=== PATIENT | male | born 1960 | race Hispanic/Latino ===

== ENCOUNTER 2024-04-30 08:51 | Inpatient (IN) | payer OTHER ==
[~2024-04-30] VITALS: Ht 172.7 cm; Wt 101.2 kg
[2024-04-30] VITALS (7 sets, daily range): BP systolic 149–167; BP diastolic 94–111; PULSE 88–101; RESP 16–21; TEMP 97.6–98.6; O2SAT 97–100
[~2024-04-30 08:51] MED LIST: AMLODIPINE BESY10 MG PO; ASPIR 8181 MG PO; ATORVASTATIN CA20 MG PO; CEPHALEXIN500 MG PO; COUMADIN5 MG PO; DOCUSATE SODIU100 MG PO; ECOTRIN325 MG PO; FUROSEMIDE40 MG PO; GABAPENTIN300 MG PO; GLUCOTROL10 MG PO; HUMULIN 70100 UNIT/2 SC; LEVEMIR100 UNIT/1 SQ; LISINOPRIL10 MG PO; METFORMIN HCL500 MG PO; METOPROLOL TART50 MG PO; NYSTATIN100000 UNI TOP; PLAVIX75 MG PO; POTASSIUM CHLO20 ME1 PO; PRAVASTATIN SOD20 MG PO; TYLENOL WITH C1 EACH PO
[2024-04-30 09:32] LABS: BASOPHILS % 0.5 % (0.0-1.0); EOSINOPHILS # (AUTO) 0.2 (0.0-0.4); EOSINOPHILS % 2.6 % (0.0-6.0); HEMATOCRIT 46.3 % (38.2-49.6); HEMOGLOBIN 15.5 g/dL (14.0-18.0); LYMPHOCYTES # (AUTO) 1.6 (1.0-3.2); LYMPHOCYTES % 20.3 % (18.0-39.1); MEAN CORPUSCULAR HEMOGLOBIN 29.1 pg (28-32); MEAN CORPUSCULAR HGB CONC 33.5 g/dL (31-35); MONOCYTES # (AUTO) 0.5 (0.2-0.8); MONOCYTES % 6.4 % (4.4-11.3); NEUTROPHILS # (AUTO) 5.3 (2.1-6.9); NEUTROPHILS % 69.9 % (38.7-80.0); PLATELET COUNT 181 x10e3/uL (140-360); RED BLOOD COUNT 5.32 x10e6/uL (4.3-5.7); RED CELL DISTRIBUTION WIDTH 12.8 % (11.7-14.4); WHITE BLOOD COUNT 7.62 x10e3/uL (4.8-10.8)
[2024-04-30] MEDS: METOPROLOL TARTRATE 25 MG TAB PO ONE (09:32)
[2024-04-30] MEDS: NITROGLYCERIN 2% OINT 1 GM PKT TOP ONE (09:32)
[2024-04-30] MEDS: ASPIRIN 81 MG CHEW TAB PO ONE (09:33)
[2024-04-30 09:50] LABS: INR 1.04; PROTHROMBIN TIME 14.2 seconds (11.9-14.5)
[2024-04-30 09:51] LABS: ALBUMIN 3.9 g/dL (3.5-5.0); ALBUMIN/GLOBULIN RATIO 1.2 (0.8-2.0); ANION GAP 15.1 mmol/L (8-16); BILIRUBIN,TOTAL 0.9 mg/dL (0.2-1.2); CALCIUM 9.1 mg/dL (8.4-10.2); CREATININE, SERUM 1.2 mg/dL (0.72-1.25); MAGNESIUM 2.1 MG/DL (1.3-2.1); PARTIAL THROMBOPLASTIN TIME 28.6 seconds (23.8-35.5); POTASSIUM 4.1 mmol/L (3.5-5.1); TOTAL PROTEIN 7.1 g/dL (6.5-8.1)
[2024-04-30 09:57] LABS: TROPONIN I 0.075 ng/mL (0-0.300)
[2024-04-30] MEDS ORDERED: IOPAMIDOL 370 MG/ML 100 ML INFUS..BTL INJ ONE (10:26)
[2024-04-30] MEDS ORDERED: ONDANSETRON HCL INJ 2MG/ML 2ML 2 MG/ML VIAL IV PRN (11:00)
[2024-04-30] MEDS ORDERED: DEXTROSE 50% SYRINGE 50 ML IV PRN (11:00)
[2024-04-30] MEDS: ENOXAPARIN SODIUM INJ 100 MG/ML SYR SC ONE (11:32)
[2024-04-30] MEDS: INSULIN LISPRO 100 UNIT/1 ML 3ML VIAL SQ SCH (12:41)
[2024-04-30] MEDS: METOPROLOL SUCCINATE 50 MG TAB XL PO SCH (15:22)
[2024-04-30] MEDS: FUROSEMIDE INJ 10 MG/ML 4 ML VIAL IV ONE (15:23)
[2024-04-30 16:03] LABS: TROPONIN I 0.049 ng/mL (0-0.300)
[2024-05-01 00:30] VITALS: BP 153/104; PULSE 91; RESP 19; TEMP 98.1; O2SAT 99
[2024-05-01] MEDS: HYDRALAZINE HCL 20 MG/ML VIAL IV PRN (00:49)
[2024-05-01 00:55] VITALS: BP 155/106
[2024-05-01 04:00] VITALS: BP 139/98; PULSE 89; RESP 21; TEMP 98; O2SAT 99
[2024-05-01 06:41] LABS: BASOPHILS % 0.5 % (0.0-1.0); EOSINOPHILS # (AUTO) 0.2 (0.0-0.4); EOSINOPHILS % 2.8 % (0.0-6.0); HEMATOCRIT 45.4 % (38.2-49.6); HEMOGLOBIN 14.9 g/dL (14.0-18.0); LYMPHOCYTES # (AUTO) 1.4 (1.0-3.2); LYMPHOCYTES % 16.7 % (18.0-39.1); MEAN CORPUSCULAR HEMOGLOBIN 29.4 pg (28-32); MEAN CORPUSCULAR HGB CONC 32.8 g/dL (31-35); MEAN CORPUSCULAR VOLUME 89.5 fL (81-99); MONOCYTES # (AUTO) 0.6 (0.2-0.8); MONOCYTES % 6.4 % (4.4-11.3); NEUTROPHILS # (AUTO) 6.3 (2.1-6.9); NEUTROPHILS % 73.4 % (38.7-80.0); PLATELET COUNT 171 x10e3/uL (140-360); RED BLOOD COUNT 5.07 x10e6/uL (4.3-5.7); RED CELL DISTRIBUTION WIDTH 12.6 % (11.7-14.4); WHITE BLOOD COUNT 8.55 x10e3/uL (4.8-10.8)
[2024-05-01 07:11] LABS: ALBUMIN 3.6 g/dL (3.5-5.0); ALBUMIN/GLOBULIN RATIO 1.1 (0.8-2.0); ANION GAP 14.6 mmol/L (8-16); BILIRUBIN,TOTAL 1.2 mg/dL (0.2-1.2); CALCIUM 9.3 mg/dL (8.4-10.2); CHOL/HDL RATIO 6.5 (3.9-4.7); CREATININE, SERUM 1.01 mg/dL (0.72-1.25); POTASSIUM 3.6 mmol/L (3.5-5.1); TOTAL PROTEIN 6.8 g/dL (6.5-8.1)
[2024-05-01 07:18] LABS: TROPONIN I 0.261 ng/mL (0-0.300)
[2024-05-01 08:26] VITALS: BP 140/87; PULSE 91; RESP 20; TEMP 98.1; O2SAT 98
[2024-05-01] MEDS ORDERED: ASPIRIN 81 MG ENTERIC COATED PO SCH (09:00)
[2024-05-01] MEDS: LOSARTAN POTASSIUM 25 MG TAB PO SCH (10:00)
[2024-05-01] MEDS: CLOPIDOGREL BISULFATE 75 MG TAB PO SCH (10:00)
[2024-05-01] MEDS: FUROSEMIDE 40 MG TAB PO SCH (10:01)
[2024-05-01 10:44] VITALS: BP 140/87; PULSE 91; RESP 20; TEMP 98.1; O2SAT 98
[2024-05-01 12:19] VITALS: BP 142/108; PULSE 88; RESP 20; TEMP 97.6; O2SAT 100
[2024-05-01] MEDS ORDERED: WARFARIN SOD 5 MG TAB PO SCH (17:00)
[2024-05-02] MEDS ORDERED: ASPIRIN 81 MG CHEW TAB PO SCH (09:00)
== END 2024-05-01 12:35 | disposition home or self-care (01) | DRG 291 ==
LOC: ER 08:56 → ERHOLD 10:59 → MED/SURG3 11:44
PROVIDERS: ADMIT Internal Medicine; ATTEND Internal Medicine
DX: I11.0 Hypertensive heart disease with heart failure (principal); I50.23 Acute on chronic systolic (congestive) heart failure; Z79.01 Long term (current) use of anticoagulants; Z95.2 Presence of prosthetic heart valve; E11.51 Type 2 diabetes mellitus with diabetic peripheral angiopathy without gangrene; I25.10 Atherosclerotic heart disease of native coronary artery without angina pectoris; M54.9 Dorsalgia, unspecified; E78.5 Hyperlipidemia, unspecified; Z79.02 Long term (current) use of antithrombotics/antiplatelets; Z79.4 Long term (current) use of insulin; Z79.84 Long term (current) use of oral hypoglycemic drugs; Z79.82 Long term (current) use of aspirin; I25.2 Old myocardial infarction; Z85.038 Personal history of other malignant neoplasm of large intestine; Z95.820 Peripheral vascular angioplasty status with implants and grafts; Z90.49 Acquired absence of other specified parts of digestive tract; Z86.711 Personal history of pulmonary embolism
CPT/HCPCS: 36415; 71045; 71260; 80053; 80061; 82550; 82948; 83735; 83880; 84484; 85025; 85379; 85610; 85730; 87400; 93005; 93306; 96372; 99284; J0360; J1650; J1940; Q9967; U0002